=== PATIENT | female | born 1985 | race American Indian/Alaskan Native ===

== ENCOUNTER 2017-11-09 19:53 | Emergency (ER) | payer MEDICAID, OTHER ==
[2017-11-09 19:54] VITALS: BMI 50.3
[2017-11-09 20:15] VITALS: BP 148/89; PULSE 78; RESP 18; TEMP 98.5; O2SAT 98
--- NOTE | 2017-11-09 20:16 | C.PDOC ---
History Of Present Illness 32 yo female c/o dental pain since this morning. Pt had 4 teeth extracted this morning, was prescribed PCN and Motrin. Pt has been taking the medication as prescribed but pain persists. Notes she had 4 teeth extracted two weeks ago on the other side. Denies difficulty breathing, difficulty swallowing, swelling, or fever. Time Seen by Provider: 11/09/17 20:10 Chief Complaint (Nursing): Dental Pain History Per: Patient History/Exam Limitations: no limitations Onset/Duration Of Symptoms: Mins Current Symptoms Are (Timing): Still Present Past Medical History Vital Signs: Last Vital Signs Temp 98.5 F 11/09/17 20:14 Pulse 78 11/09/17 20:14 Resp 18 11/09/17 20:14 BP 148/89 11/09/17 20:14 Pulse Ox 98 11/09/17 20:28 - Medical History PMH: Fractures (left wrist) Denies: Chronic Kidney Disease Surgical History: Cholecystectomy, Endoscopy - [facility] Procedures ESOPHAGOGASTRODUODENOSCOPY [EGD] W/CLOSED BIOPSY (03/23/14) INJECT RH IMMUNE GLOBUL (06/16/13) LAPAROSCOPIC VERTICAL (SLEEVE) GASTRECTOMY (05/24/14) LOW CERVICAL (06/16/13) OTHER GASTROSCOPY (05/24/14) Family History: States: Unknown Family Hx - Social History Hx Tobacco Use: Yes Hx Alcohol Use: Yes Hx Substance Use: No - Immunization History Hx Influenza Vaccination: No Hx Pneumococcal Vaccination: No Review Of Systems Constitutional: Negative for: Fever ENT: Positive for: Mouth Pain. Negative for: Ear Pain, Throat Pain, Throat Swelling Cardiovascular: Negative for: Chest Pain Respiratory: Negative for: Cough, Shortness of Breath Physical Exam - Physical Exam Appears: Well, Non-toxic, No Acute Distress, Other (pt has gum and gauze in her mouth) Skin: Normal Color, Warm, Dry Head: Atraumatic, Normacephalic Eye(s): bilateral: Normal Inspection, PERRL, EOMI Nose: Normal Oral Mucosa: Moist Teeth: Other ((+) 4 molar healing extraction to right maxillary. (+) 4 molars extracted with intact sutures. No bleeding. No evidence of dry socket) Throat: Normal, No Erythema, No Exudate Neck: Normal, Normal ROM, Supple Chest: Symmetrical Cardiovascular: Rhythm Regular Respiratory: Normal Breath Sounds Back: Normal Inspection Extremity: Normal ROM Neurological/Psych: Oriented x3, Normal Speech ED Course And Treatment O2 Sat by Pulse Oximetry: 98 Progress Note: percocet and lidocaine leidy ordered. On re-evaluation, pt tolerating po. afebrile. Instructed to followq up with dentist tomorrow. Disposition - Disposition Disposition: HOME/ ROUTINE Disposition Time: 20:23 Condition: STABLE Additional Instructions: Follow up with dentist tomorrow. Return to ER if symptoms persist or worsen. Prescriptions: oxyCODONE/Acetaminophen [Percocet 5/325 mg Tab] 1 tab PO QID PRN #12 tab PRN Reason: Pain Instructions: Tooth Extraction Forms: [employer] (Indonesian) - Clinical Impression Clinical Impression: S/P tooth extraction, Pain, dental
[2017-11-09] MEDS ORDERED: Oxycodone/Acetaminophen 5/325 mg Tab PO STA (20:20)
[2017-11-09] MEDS ORDERED: Oxycodone/Acetaminophen 5/325 mg Tab ONE (20:26)
== END 2017-11-09 20:39 | disposition home or self-care (01) ==
LOC: C.ER 19:53
DX: K08.89 Other specified disorders of teeth and supporting structures (principal); K08.409 Partial loss of teeth, unspecified cause, unspecified class; F17.210 Nicotine dependence, cigarettes, uncomplicated

== ENCOUNTER 2017-11-21 10:37 | Emergency (ER) | payer OTHER ==
[2017-11-21 10:37] VITALS: BMI 50.3
--- NOTE | 2017-11-21 11:31 | C.PDOC ---
History Of Present Illness Pt states her dentist is extracting all her upper teeth in order to then fit a denture. She had another set of teeth extracted 2 days ago. Time Seen by Provider: 11/21/17 11:00 Chief Complaint (Nursing): Dental Pain History Per: Patient Onset/Duration Of Symptoms: Days (2) Current Symptoms Are (Timing): Still Present Severity: Moderate Dental/Oral: 1 - teeth extracted Quality: Positive for: "Pain" Additional History Per: Prior Records Past Medical History Reviewed: Historical Data, Nursing Documentation, Vital Signs Vital Signs: Last Vital Signs Temp 98.3 F 11/21/17 10:46 Pulse 76 11/21/17 10:46 Resp 18 11/21/17 10:46 BP 122/71 11/21/17 10:46 Pulse Ox 98 11/21/17 10:46 - Medical History PMH: No Chronic Diseases, Fractures (left wrist) Surgical History: Cholecystectomy, Endoscopy - [facility] Procedures ESOPHAGOGASTRODUODENOSCOPY [EGD] W/CLOSED BIOPSY (03/23/14) INJECT RH IMMUNE GLOBUL (06/16/13) LAPAROSCOPIC VERTICAL (SLEEVE) GASTRECTOMY (05/24/14) LOW CERVICAL (06/16/13) OTHER GASTROSCOPY (05/24/14) Family History: States: Unknown Family Hx - Social History Hx Tobacco Use: Yes Hx Alcohol Use: Yes Hx Substance Use: No - Immunization History Hx Influenza Vaccination: No Hx Pneumococcal Vaccination: No Review Of Systems Except As Marked, All Systems Reviewed And Found Negative. Constitutional: Negative for: Fever, Weakness ENT: Positive for: Mouth Pain. Negative for: Throat Pain Cardiovascular: Negative for: Chest Pain Respiratory: Negative for: Shortness of Breath Gastrointestinal: Negative for: Vomiting, Abdominal Pain Skin: Negative for: Rash Neurological: Negative for: Weakness, Numbness, Seizures, Altered Mental Status Physical Exam - Physical Exam Appears: Non-toxic, No Acute Distress Skin: Normal Color, Warm, Dry, No Rash Head: Atraumatic, Normacephalic Eye(s): bilateral: Normal Inspection, PERRL, EOMI Oral Mucosa: Moist, No Drooling, No Trismus Teeth: Caries, Other (upper anterior teeth extracted with sutures still in place.) Throat: Normal Neck: Normal ROM, Supple Lymphatic: No Adenopathy Extremity: Normal ROM Neurological/Psych: Oriented x3, Normal Motor, Normal Sensation ED Course And Treatment O2 Sat by Pulse Oximetry: 98 Pulse Ox Interpretation: Normal Disposition Counseled Patient/Family Regarding: Diagnosis, Need For Followup, Rx Given - Disposition Disposition: HOME/ ROUTINE Disposition Time: 11:34 Condition: STABLE Additional Instructions: Follow up with your dentist. Return to the ER if you develop fever, pus drainage , swelling, redness, worsening of symptoms or if you have any other concerns. Prescriptions: oxyCODONE/Acetaminophen [Percocet 5/325 mg Tab] 1 tab PO QID PRN #12 tab PRN Reason: Pain, Severe (8-10) Instructions: Tooth Extraction (DC) - Clinical Impression Clinical Impression: Status post tooth extraction, Pain, dental
[2017-11-21 11:42] VITALS: BP 118/68; PULSE 78; RESP 16; TEMP 98.4; O2SAT 99
== END 2017-11-21 11:42 | disposition home or self-care (01) ==
LOC: C.ER 10:37
DX: K08.89 Other specified disorders of teeth and supporting structures (principal); K08.409 Partial loss of teeth, unspecified cause, unspecified class